=== PATIENT | female | born 1965 | race Caucasian/White ===

== ENCOUNTER 2019-03-01 19:04 | Observation (INO) ==
[2019-03-01] MEDS ORDERED: ASPIRIN PO ONE (19:22)
[2019-03-01 19:49] LABS: BASO# 0.09 X1000 (0.0-0.2); BASO% 0.6 % (0.0-0.8); EOS# 0.26 X1000 (0.0-0.7); EOS% 1.7 % (0.0-10.0); HEMATOCRIT 47.3 % (37.0-47.0); HEMOGLOBIN 16.7 g/dL (12.0-16.0); IMM GRAN# 0.15 X1000 (0.0-0.04); LYMPH# 5.36 X1000 (1.2-3.4); LYMPH% 35.1 % (20.5-51.1); MCH 31.7 PG (27-31); MCHC 35.3 g/dL (33-37); MCV 89.9 FL (81-99); MONO# 1.38 X1000 (0.11-0.59); MPV 11.4 FL (7.4-10.4); NEUT# 8.03 X1000 (1.4-6.5); NEUT% 52.6 % (42.2-75.2); PLT 287 X1000 (130-400); RBC 5.26 XMIL (4.2-5.4); RDW 12.9 % (11.5-14.5); WBC 15.27 X1000 (4.8-10.8)
[2019-03-01 19:56] LABS: INR 0.95; PROTIME 12.8 Seconds (11.0-16.0)
[2019-03-01 19:57] LABS: PTT 24.7 Seconds (22.3-41.8)
--- NOTE | 2019-03-01 20:15 | Diag Imaging Result Doc PS360 ---
EXAM: CHEST-2 VIEWS - 03/01/2019 HISTORY: cp TECHNIQUE: Chest two views COMPARISON: 03/11/2019 FINDINGS: Heart size is normal. The lungs appear clear. There is no pleural effusion or pneumothorax identified. There are thoracic spondylosis and exaggerated kyphosis noted similar to prior. IMPRESSION: No evidence of acute disease. Electronically signed by Clifford Hinton 03/01/2019 8:13 PM
--- NOTE | 2019-03-01 20:21 | EKG Report ---
Test Performed on : 03/01/2019 7:16:16 PM Test Reason : PAIN IN CHEST Blood Pressure : / mmHG Vent. Rate : 105 BPM Atrial Rate : 105 BPM P-R Int : 132 ms QRS Dur : 066 ms QT Int : 328 ms P-R-T Axes : 052 -03 052 degrees QTc Int : 433 ms Sinus tachycardia. Otherwise normal ECG When compared with ECG of 09-JAN-2019 16:25, (Unconfirmed) No significant change was found Unconfirmed Result
[2019-03-01 20:23] LABS: ALB/GLOB RATIO 2.4; ALBUMIN 4.5 g/dL (3.5-5.0); CALCIUM 10.2 mg/dL (8.8-10.2); CREATININE 1.1 mg/dL (0.5-0.9); POTASSIUM 3.7 mmol/L (3.5-5.1); TOTAL BILIRUBIN 0.26 mg/dL (0.20-1.00); TOTAL PROTEIN 6.4 g/dL (6.3-8.3)
--- NOTE | 2019-03-02 01:02 | PROVIDER DOCUMENTATION ---
This chart was entered by Kathy Whittaker Scribe, acting as scribe for Temo Soler MD. HPI-Chest Pain - General Chief Complaint: Chest Pain Stated Complaint: PAIN IN CHEST AND BACK Time Seen by Provider: 03/02/19 00:06 Source: patient, family Allergies/Adverse Reactions: Patient Allergies Allergy/AdvReac Type Severity Reaction Status Date / Time No Known Allergies Allergy Verified 01/09/19 15:36 Home Medications: Home Medication List Medication Instructions Recorded Confirmed Last Taken Type Amoxicillin/Pot Clavulanate 875 mg PO Q12HR #14 tab 01/09/19 Unknown Rx [Augmentin] - History of Present Illness-CP Nature of Presenting Problem: 53 yof presents w/family to er w/cc substernal cp w/radiation to back starting today. pt still in pain in er. pt mother at bedside sts pt has been clammy all day. pt had recent high blood pressure, mother took pt to [facility] x 2 days ago and was given rx HTCZ to take as well as lisinopril she had been taking. pt has hx of cva, htn and deaf. pt wears cochlear implant. pt not wearing implants in er. pt smokes 1 ppd. Location: reports: substernal Chest Pain Radiation: reports: back Severity in ED: mild Onset/Duration: other (today) Timing: still present Context/Activities at Onset: reports: none Review of Systems - Adult - REVIEW OF SYSTEMS - ADULT Constitutional: reports: no symptoms reported. denies: fever, fatique, night sweats Eyes: reports: no symptoms reported Ears, Nose, Mouth & Throat: reports: no symptoms reported Cardiovascular: reports: see HPI, chest pain (radiating to back). denies: edema, orthopnea, palpitations Respiratory: reports: no symptoms reported. denies: dyspnea on exertion, shortness of breath, wheezing Gastrointestinal: reports: no symptoms reported. denies: abdominal pain, diarrhea, nausea Genitourinary: reports: no symptoms reported Musculoskeletal: reports: no symptoms reported Integumentary: reports: see HPI, other (clammy skin) Neurological: reports: no symptoms reported Psychiatric: reports: no symptoms reported Endocrine: reports: no symptoms reported Hematologic/Lymphatic: reports: no symptoms reported Allergic/Immunologic: reports: no symptoms reported All Other Systems: Reviewed and Negative Past History - Adult - PAST MEDICAL HISTORY-ADULT Review of Records: reports: Old Records Reviewed, Nursing Assessment Review, Medications Reviewed, Social history reviewed & non-contributory. Major Childhood Illnesses: reports: denies history Cardiovascular: reports: HTN Respiratory: reports: denies history Gastrointestinal: reports: denies history Obstetrical/Gynecological: reports: denies history Genitourinary: reports: denies history Musculoskeletal: reports: denies history Neurological: reports: denies history, CVA Endocrine/Immune: reports: denies history Other Conditions: reports: deaf/hard of hearing (cochlear impant) - IMMUNIZATION STATUS Childhood Immunizations: See Nurse Assessment Flu Vaccine: See Nurse Assessment - FAMILY HISTORY Family History: reviewed, not pertinent - SOCIAL HISTORY Smoking: cigarettes, greater than 1 pack/day Provider spent 3-5 mins advising pt. on dangers of tobacco.: Discussed manners to quit use, and f/u contacts for add'l counseling. Substance Use: none/never Physical Exam-General - PHYSICAL EXAM-ADULT Initial Vital Signs Reviewed: Yes - CONSTITUTIONAL General Appearance: appears well, alert, no apparent distress - EYES Eyes: PERRL/EOMI, pink conjunctivae - HEAD, EARS, NOSE, MOUTH & THROAT HENMT: normocephalic/atraumatic, moist mucous membranes, normal ENT inspection, hearing deficit (deaf, not wearing cochlear implants). negative: pharyngeal erythema, tonsillar exudate, frontal tenderness, maxillary tenderness - NECK Neck: non-tender, full range of motion, supple, normal inspection - RESPIRATORY Respiratory: chest non-tender, lungs clear, normal breath sounds - CARDIOVASCULAR Cardiovascular: normal peripheral pulses, regular rate, rhythm - GASTROINTESTINAL (ABDOMEN) Abdominal Exam: normal bowel sounds, non tender, soft - LYMPHATIC Lymphatic: no adenopathy - MUSCULOSKELETAL Back Exam: normal inspection, no CVA tenderness, no vertebral tenderness Extremity: normal range of motion, non-tender, normal inspection Peripheral Pulses: radial (R): 2+, radial (L): 2+ - SKIN Integumentary: normal color, normal turgor, warm/dry - NEUROLOGIC Neurologic: grossly normal, no motor/sensory deficits - PSYCHIATRIC Psych/Mental Status: normal mood/affect, normal thought content, normal thought process, oriented x 3 - HEART Score HEART Score: History: Moderately Suspicious HEART Score: ECG: Normal HEART Score: Age: 45-65 Years HEART Score: Risk Factors for Atherosclerotic Disease: 1 or 2 Risk Factors HEART Score: Troponin: < or = Normal Limit Total HEART Score:: 3 Progress - PLAN OF CARE/RESULTS Progress/Plan/Lab Results: Vital Signs - 8 hr 03/01/19 19:25 03/02/19 00:02 Temperature 98.4 F 97.9 F Pulse Rate 113 H 92 H Respiratory Rate 18 16 Blood Pressure 109/74 119/80 O2 Sat by Pulse Oximetry 100 98 Laboratory Results - last 24 hr 03/01/19 03/01/19 03/01/19 19:31 19:31 19:31 WBC 15.27 H RBC 5.26 Hgb 16.7 H Hct 47.3 H MCV 89.9 MCH 31.7 H MCHC 35.3 RDW Std Deviation 12.9 Plt Count 287 MPV 11.4 H Immature Gran % (Auto) 1.0 H Neut % (Auto) 52.6 Lymph % (Auto) 35.1 [place] % (Auto) 9.0 Eos % (Auto) 1.7 Baso % (Auto) 0.6 Immature Gran # (Auto) 0.15 H Neut # (Auto) 8.03 H Lymph # (Auto) 5.36 H [place] # (Auto) 1.38 H Eos # (Auto) 0.26 Baso # (Auto) 0.09 PT INR PTT (Actin FS) Sodium 141 Potassium 3.7 Chloride 99 Carbon Dioxide 25 Anion Gap 17 BUN 22 Creatinine 1.1 H Estimated GFR/1.73 m2 52 BUN/Creatinine Ratio 20 Glucose 78 Calculated Osmolality 283 Calcium 10.2 Total Bilirubin 0.26 AST 23 ALT 35 Alkaline Phosphatase 103 Creatine Kinase 54 Troponin T Owg-[id number]-Wuohbjeqpri Pept 7 Total Protein 6.4 Albumin 4.5 Globulin 1.9 Albumin/Globulin Ratio 2.4 03/01/19 03/01/19 19:31 19:31 WBC RBC Hgb Hct MCV MCH MCHC RDW Std Deviation Plt Count MPV Immature Gran % (Auto) Neut % (Auto) Lymph % (Auto) [place] % (Auto) Eos % (Auto) Baso % (Auto) Immature Gran # (Auto) Neut # (Auto) Lymph # (Auto) [place] # (Auto) Eos # (Auto) Baso # (Auto) PT 12.8 INR 0.95 PTT (Actin FS) 24.7 Sodium Potassium Chloride Carbon Dioxide Anion Gap BUN Creatinine Estimated GFR/1.73 m2 BUN/Creatinine Ratio Glucose Calculated Osmolality Calcium Total Bilirubin AST ALT Alkaline Phosphatase Creatine Kinase Troponin T < 0.010 Ndi-C-Oxibvizmcxi Pept Total Protein Albumin Globulin Albumin/Globulin Ratio Orders Category Date Time Status CHEST-2 VIEWS [RAD] Stat Exams 03/01/19 19:22 Completed CBC WITH ELECTRONIC DIFF [HEME] Stat Lab 03/01/19 19:31 Completed CK PROFILE [SP CHEM] Stat Lab 03/01/19 19:31 Completed COMPREHENSIVE METABOLIC PANEL [CHEM] Stat Lab 03/01/19 19:31 Completed PRO B-NATRIURETIC PEPTIDE Stat Lab 03/01/19 19:31 Completed PROTIME WITH INR [COAG] Stat Lab 03/01/19 19:31 Completed PTT [COAG] Stat Lab 03/01/19 19:31 Completed TROPONIN T Stat Lab 03/01/19 19:31 Completed Aspirin Med 03/01/19 19:22 Discontinued 325 mg PO NOW ONE CP/SOB/Palp >45 yrs of Age Stat Oth 03/01/19 19:22 Ordered EKG [EKG] Stat Ther 03/01/19 20:18 Draft Transfer/Admit Order [TRANSFER] Routine Transfer 03/02/19 00:58 Ordered Result Diagrams: 03/01/19 19:31 03/01/19 19:31 - EKG 1 Time of EKG reading by physician:: 19:16 EKG Read and Signed by:: Temo Soler EKG Interpretation (*Must complete 3 of following elements*): Normal Rate: 105 Rhythm: st [place]onda: normal QRS: normal [place] Interval: normal ST Wave: normal Departure - Departure Date of Disposition Decision: 03/02/19 Time of Disposition Decision: 01:01 DIAGNOSIS: Chest pain, HTN (hypertension) Disposition: ADMITTED INPATIENT 09 Certified Medical Emergency: Emergent Condition: Fair Referrals and Follow-Ups: None,PCP [Primary Care Provider] - - Critical Care Note This patient required my direct & personal management of CC.: No Attestation - Physician/ ANGEL Attestation Patient care was provided by Advanced Practice Provider:: No The physician spent face to face time with patient:: Yes Advanced Practice Provider documentation review:: Supervising physician onsite and consulted in the evaluation and care of this patient. The physician did have a face to face encounter with the patient. This chart was documented by the indicated vicenteibe (Kathy Whittaker, Vicenteibe) and accurately reflects the services I performed and decisions made by me, Temo Soler MD, as attested by the provider's signature.
[2019-03-02] MEDS ORDERED: ASPIRIN PO ONE (01:46)
--- NOTE | 2019-03-02 01:48 | HISTORY AND PHYSICAL ---
PRIMARY CARE PHYSICIAN: None. CHIEF COMPLAINT: Chest pain. HISTORY OF PRESENTING ILLNESS: The patient is a 53-year-old female with a history of hearing loss who had presented to the emergency department with a 1-day history of chest pain. She states the chest pain was pressure-like and was radiating to her back. She was evaluated in the emergency department and due to her presenting symptoms it was thought that we will place her for observation, further evaluation and management. The patient is a poor historian; however, she denied any headache, fever, chills, nausea, vomiting, diarrhea, hemoptysis, melena or weight changes, but complained of chest pain. PAST MEDICAL HISTORY: None. PAST SURGICAL HISTORY: None. ALLERGIES: No known drug allergies. CURRENT MEDICATIONS: She does not recall and nursing staff will reconcile. SOCIAL HISTORY: Ten pack years history of smoking. Denies any history of alcohol or illicit drug use. She lives with her parents. FAMILY HISTORY: No history of coronary disease. REVIEW OF SYSTEMS: A fourteen point review of system as listed in the HPI. Other systems negative. PHYSICAL EXAMINATION: GENERAL: A cooperative friendly female. She is resting comfortably now. VITAL SIGNS: Temperature 97.9 degrees, pulse 92, respirations 16, blood pressure 119/80. HEENT: Atraumatic and normocephalic. Extraocular movements intact. PERRLA. NECK: No masses. CHEST: Clear to auscultation. CARDIOVASCULAR: Regular rate and rhythm. ABDOMEN: Soft. Positive bowel sounds. EXTREMITIES: No edema. NEUROLOGIC: She is awake, alert and oriented x3. : No bladder disease. SKIN: Warm. LABORATORIES AND STUDIES: WBC is 15.27, hemoglobin 16.7, hematocrit 47.3, platelets 287,000. Sodium 141, potassium 3.7, chloride 99, CO2 is 25, BUN is 22, creatinine is 1.1, glucose is 78. Chest x-ray no acute disease. ASSESSMENT: This is a 53-year-old female with a history of hearing loss who presented to emergency department with a 1-day history of having substernal chest pain. We will place the patient on observation for further evaluation and management. 1. Chest pain. 2. Ongoing tobacco use. PLAN: 1. We will admit patient to medical floor with telemetry. 2. Continue with cardiac workup. Check EKG, cardiac enzymes. Have the patient use sublingual nitroglycerin p.r.n. chest pain. 3. We will consult Cardiology. 4. We will university counselor the patient extensively on smoking cessation. cc: Evaristo Grace MD
[2019-03-02] MEDS ORDERED: NITROGLYCERIN SL PRN (03:03)
[2019-03-02] MEDS ORDERED: ZOFRAN IV PRN (03:03)
[2019-03-02] MEDS ORDERED: TYLENOL PO PRN (03:03)
[2019-03-02] MEDS ORDERED: PRILOSEC PO SCH (07:00)
[2019-03-02] MEDS ORDERED: ASPIRIN PO SCH (09:00)
[2019-03-02 11:21] VITALS: BP 115/72
--- NOTE | 2019-03-02 12:02 | Diag Imaging Result Doc PS360 ---
EXAM: US ABDOMEN-COMPLETE HISTORY: Abdominal pain, concern for gallbladder issues TECHNIQUE: Abdominal ultrasound COMPARISON: None. FINDINGS: Normal inferior vena cava. Moderate atherosclerosis. No aortic aneurysm. Normal pancreatic body. Portions of the head and tail are obscured. No focal hepatic abnormality. The common bile duct measures less than 4 mm. Normal gallbladder. No stones. The wall is not thickened. There is a 1.1 cm cyst in the lower pole of the right kidney and 2.2 cm cyst in the upper pole of the left kidney. The kidneys are otherwise normal. No hydronephrosis. Normal spleen. No ascites. IMPRESSION: Normal gallbladder. Electronically signed by Mathieu Parson 03/02/2019 12:00 PM
--- NOTE | 2019-03-02 12:47 | CONSULTATION ---
DATE OF CONSULTATION: 03/02/2019 IMPRESSION: 1. Episode of chest discomfort with features predominantly atypical for myocardial ischemia. Consider possible esophageal source of symptoms or gallbladder. 2. Chronic cigarette use. 3. Hearing loss. RECOMMENDATIONS: 1. Follow up stress test result. 2. Suggest also obtaining abdominal ultrasound to evaluate for gallbladder disease. 3. Consider proton pump inhibitor for gastroesophageal reflux disease. HISTORY: This 53-year-old white female with no prior cardiovascular history, who has a history of smoking and hearing loss was admitted to the emergency room yesterday after episode of chest discomfort. She relates that she had some soup (hamburger soup) and subsequently drank a cola. She subsequently had substernal discomfort that radiated to her back. She characterizes discomfort as more dull and somewhat pressure like. Discomfort was persistent for perhaps 40 minutes or so. She did not try to take any antacids. She became a little diaphoretic and nauseated. She was brought to the emergency room for evaluation. Her chest discomfort has resolved and not recurred. She is generally active without any exertional chest discomfort. She has not had any previous chest symptoms. Before yesterday. PAST MEDICAL HISTORY: 1. Hearing loss/deafness 2. Status post cochlear implant. ALLERGIES: No known drug allergies. MEDICATIONS PRIOR TO ADMISSION: As listed. SOCIAL HISTORY: She has significant hearing loss and is status post cochlear implant. She lives with her mother. She smokes 1/2 to 1 pack of cigarettes per day and has done so for at least 10 years. She does not use alcohol. FAMILY HISTORY: Negative for premature coronary disease. REVIEW OF SYSTEMS: Pulmonary: Negative. Gastrointestinal: Noncontributory beyond history of present illness. Constitutional: Noncontributory beyond history of present illness REVIEW OF SYSTEMS: Negative/noncontributory beyond history of present illness with 14 total systems reviewed. PHYSICAL EXAMINATION: General: This is a pleasant, middle-aged white female in no distress. Vital signs: Blood pressure 123/68, heart rate 82. HEENT: Extraocular muscles appear intact. Mucous membranes moist. Neck: Supple without jugular distention. There are no carotid bruits. Chest: Clear to auscultation bilaterally. Cardiac: Reveals a regular rate and rhythm without appreciable murmur or gallop. Abdomen: Soft. Bowel sounds are normal. Extremities: Without edema. Neurologic: Reveals him to her to be alert and fully oriented. Speech is fluent. She moves all 4 extremities equally well. Skin: Warm and dry. Psychiatric: Reveals mood to be appropriate. DIAGNOSTIC DATA: 12 lead EKG demonstrates sinus tachycardia but is otherwise within normal limits. LABORATORY DATA: Includes a white blood cell count 15.27 hematocrit 47.3, hemoglobin 16.7, platelet count 287,000. Sodium 141, potassium 3.7, chloride 99, carbon dioxide 25, BUN 22, creatinine 1.1. Glucose 78, total bilirubin 0.26. AST is 23. ALT 35, alkaline phosphatase 103. CPK 54, follow-up CPK 57, troponin T less than 0.01. Follow-up troponin T less than 0.01. cc: MD Evaristo Kathleen MD
[2019-03-02] MEDS ORDERED: LEXISCAN ONE (13:16)
--- NOTE | 2019-03-02 15:13 | Diag Imaging Result Document ---
PROCEDURE NAME: MYOCARDIAL PERF SCAN, STR/REST - 03/02/2019 LEXISCAN CARDIOLITE STRESS TEST: Lexiscan was infused per standard protocol. There was no chest pain. Stress electrocardiogram was negative for ischemia. She had elevated blood pressures during Lexiscan infusion. There was no chest pain. Cardiolite was injected. 10.6 mCi of Cardiolite was injected for the rest phase. 30.8 mCi of Cardiolite was injected for the stress phase. Chest wall attenuation is noted. Normal left ventricular cavity size. Normal myocardial perfusion. Left ventricular ejection fraction by gated SPECT was 90%. CONCLUSIONS: 1. No chest pain. 2. Negative Lexiscan stress electrocardiogram. 3. Normal myocardial perfusion. 4. Left ventricular ejection fraction 90%. cc: MD Milly Sexton PA
--- NOTE | 2019-03-02 15:39 | Diag Imaging Result Doc PS360 ---
EXAM: CT ANGIOGRAM THORAX 03/02/2019 HISTORY: CP, rule out aortic dissection/subclavian stenosis TECHNIQUE: This exam was performed using automated exposure control, adjustment of mA or kV according to patient size, and/or use of iterative reconstruction technique. COMMENT: 3-D MIPS were performed. There are no previous studies available for comparison. There is no evidence of acute pulmonary parenchymal disease. The left common carotid and brachiocephalic arteries arise from a common trunk. There is occlusion of the proximal left subclavian artery with apparent subclavian steal. The subclavian artery is opacified with contrast be on the takeoff of the vertebral artery. There is no evidence of aneurysm or dissection. The ascending aorta measures less than 3 cm in transverse dimension. There are some noncalcified plaques in the descending aorta some of which appear to be ulcerated. There are no abnormal fluid collections. There is no evidence of acute pulmonary parenchymal disease. There are some spondylotic changes in the thoracic spine. There is no evidence of acute bony abnormality. 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 Atherosclerotic changes in the descending aorta. Electronically signed by Vinh Orellana 03/02/2019 3:37 PM
--- NOTE | 2019-03-03 06:15 | DISCHARGE SUMMARY ---
ADMISSION DATE: 03/02/2019 DISCHARGE DATE: 03/02/2019 DISPOSITION: Home. FOLLOW-UP: Will be with Dr. Dyer. CONSULTATION DURING THIS ADMISSION: Cardiology was consulted. Patient was seen by Dr. Dyer. INVASIVE STUDIES DURING THIS ADMISSION: None. IMAGING STUDIES OF SIGNIFICANCE: 1. A chest x-ray showed no evidence of acute disease. 2. A myocardial perfusion scan showed normal myocardial perfusion. 3. Ultrasound of the abdomen showed no gallbladder disease. 4. A CT scan of the chest and thorax showed occlusion of the proximal left subclavian artery with subclavian steal syndrome. ASSESSMENT ON ADMISSION: 1. Chest pain. 2. Ongoing tobacco use. DIAGNOSES AT THE TIME OF DISCHARGE: 1. Chest pain with unremarkable cardiac workup, likely noncardiac in origin. 2. Aorta Atherosclerosis. Patient is on statins. 3. Chronic tobacco use and abuse. 4. Hearing loss. 5. 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 DISCHARGE MEDICATIONS: 1. Lisinopril 20 mg p.o. daily. 2. Iron sulfate. 3. Crestor 20 mg p.o. daily. 4. Aspirin 325 p.o. daily. 5. Omeprazole 20 mg p.o. daily. 6. Hydrochlorothiazide has been withheld. PRESENTING COMPLAINT: Chest pain. HISTORY OF PRESENTING COMPLAINT: Ms Reeves is a 53-year-old female with history of chronic hearing loss, using hearing aids, came to the emergency department because of chest discomfort which radiated to the back. Upon presenting, the patient was evaluated and was admitted to rule out any coronary artery disease. HOSPITAL COURSE: Ms Reeves was admitted to the medical floor. Multiple EKGs were done. Troponin's were also done 3 times, which were all negative. A stress test was unremarkable as well as an ultrasound of the abdomen. A CTA of the chest and the thorax did reveal a proximal occlusion of the left subclavian artery with subclavian steal syndrome, but the patient was completely asymptomatic from that. She is currently on Crestor, aspirin, and blood pressure control. She is also completely asymptomatic at this point, we think she is okay for discharge. She is going to follow up with Dr. Dyer on an outpatient basis. Her current vitals, blood pressure is 115/72, pulse of 74, respirations 20, temperature 97.6 degrees. The patient is saturating 100% on room air. All the discharge instructions have been discussed with Ms. Reeves and the Mother, who was at the bedside at the time of the encounter. Both of them voiced understanding. Ms. Reeves has also been counseled about tobacco cessation. TIME SPENT FOR DISCHARGE: 35 minutes. cc: MD Evaristo Frazier MD William D. Denney, MD MTDD
== END 2019-03-02 18:29 | disposition home or self-care (01) ==
LOC: 3N 19:04 → ED 19:04 → SUATTDRO 03-02 02:00
PROVIDERS: ADMIT Emergency Medicine; ATTEND Internal Medicine